=== PATIENT | female | born 1985 | race Two or more races ===

== ENCOUNTER 2024-07-11 17:07 | Emergency (ER) | payer MEDICAID, SELFPAY ==
[2024-07-11 17:17] VITALS: BP 167/95; PULSE 99; RESP 18; TEMP 36.9; O2SAT 99; BMI 35.2
--- NOTE | 2024-07-11 17:21 | XR_ITS ---
EXAMINATION: XR shoulder LT min 2V ORDERING PROVIDER: Jas Chávez NP HISTORY: pain after fall TECHNIQUE: 3 radiographs of the left shoulder were obtained. COMPARISON: None. FINDINGS: BONES: No acute fracture or dislocation. ALIGNMENT: Normal. JOINTS: Normal. BONY MINERALIZATION: Normal. SOFT TISSUES: Normal. IMPRESSION: Normal.
--- NOTE | 2024-07-11 17:22 | XR_ITS ---
EXAMINATION: XR chest 1V ORDERING PROVIDER: Jas Chávez NP HISTORY: leftant chest pain s/p fall TECHNIQUE: Single portable AP radiograph of the chest. COMPARISON: 09/14/2016, chest radiographs. FINDINGS: Lines and Tubes: None. Lungs: Clear. Pleura: No pneumothorax or pleural effusion. Cardiomediastinal Silhouette: Normal. Soft Tissues/Bones: Right upper quadrant surgical clips. IMPRESSION: No acute pulmonary findings.
--- NOTE | 2024-07-11 17:23 | PD.EDRME ---
Rapid Medical Screening Exam [facility] Arrival date/time: 07/11/24 17:07 CC: Left shoulder pain HPI unable to lift her arm secondary to feel like it is caught , and from the pain. This is a result of a slip out of a car when getting out on the slippery pavement approximately 2 hours ago. Denies any numbness or tingling in the hand of the left upper extremity. Patient denies loss of consciousness or altered level of consciousness past medical history includes diabetes and hyperlipidemia. Chief Complaint: Fall Time Seen by Provider: 07/11/24 17:10 Vital signs: Vital Signs Temperature 98.5 F 07/11/24 17:17 Pulse Rate 99 07/11/24 17:17 Respiratory Rate 18 07/11/24 17:17 Blood Pressure 167/95 H 07/11/24 17:17 Pulse Oximetry (%) 99 07/11/24 17:17 Oxygen Delivery Method Room Air 07/11/24 17:17
--- NOTE | 2024-07-11 19:28 | PD.EDFALL ---
ED Fall Injury RME/HPI General Chief Complaint: Fall Stated Complaint: LEFT SHOULDER PAIN SP FALL Time Seen by Provider: 07/11/24 17:10 Arrival date/time: 07/11/24 17:07 RME / HPI RME / HPI Narrative: 39-year-old female patient left shoulder pain HPI unable to lift her arm secondary to feel like it is caught , after a fall.. This is a result of a slip out of a car when getting out on the slippery pavement approximately 2 hours ago. Denies any numbness or tingling in the hand of the left upper extremity. Patient denies loss of consciousness or altered level of consciousness past medical history includes diabetes and hyperlipidemia. Related Data Home Medications ?Medication ?Instructions ?Recorded ?Confirmed atorvastatin 20 mg tablet 20 mg PO QPM 09/11/23 09/13/23 empagliflozin 25 mg tablet 25 mg PO QAM 09/11/23 09/13/23 (Jardiance) insulin glargine 100 unit/mL (3 60 unit subcut QPM 09/11/23 09/13/23 mL) subcutaneous pen (Basaglar KwikPen U-100 Insulin) insulin lispro 100 unit/mL 30 unit subcut TID 09/11/23 09/13/23 subcutaneous pen (Humalog KwikPen (U-100) Insulin) lisinopril 20 mg tablet 20 mg PO QDAY 09/11/23 09/13/23 Previous Rx's ?Medication ?Instructions ?Recorded ibuprofen 800 mg tablet 800 mg PO TID PRN pain #30 tabs 07/11/24 Allergies Allergy/AdvReac Type Severity Reaction Status Date / Time No Known Allergies Allergy Verified 09/13/23 07:44 Review of Systems Review of Systems Narrative Review of Systems: Review of system reviewed and within normal limits except mentioned in HPI ED Exam Narrative Physical exam: VITAL SIGNS: Reviewed. GENERAL APPEARANCE: Alert and interactive, follows commands, no acute distress, HEAD AND FACE: Non-traumatic. ENT: PERRL, pink conjunctivitis, eyelid no trauma, Mucous membrane moist. NECK: Supple, nontender, no nuchal rigidity. CHEST: No tenderness, no crepitus, no paradoxical movement, no retractions. LUNGS: Clear, well ventilated, symmetric, no rales, no wheezing, no ronchi, no stridor, good breath sounds bilaterally. HEART: Regular rate, regular rhythm, no murmur, no gallops. ABDOMEN: Soft, positive bowel sounds, nondistended, no guarding, nontender, no rebound, no masses, RECTAL: Deferred. GENITAL: Deferred. NEUROLOGICAL: Gross motor function intact sensory function intact, Appropriate for age. MUSCULOSKELETAL: low back nontender, full range of motion. EXTREMITIES: Left anterior shoulder tenderness, with limitation range of motion. Especially on lifting the arm over the head. SKIN: Color pink, dry, no rash, no lacerations, no abrasions, no contusions. LYMPHATICS: Deferred. Course Quality Measures none Orders Category Date Time Status XR chest 1V Stat Exams 07/11/24 17:22 Completed XR shoulder LT min 2V Stat Exams 07/11/24 17:21 Completed Vital Signs Vital signs: Vital Signs Temperature 98.5 F 07/11/24 17:17 Pulse Rate 99 07/11/24 17:17 Respiratory Rate 18 07/11/24 17:17 Blood Pressure 167/95 H 07/11/24 17:17 Pulse Oximetry (%) 99 07/11/24 17:17 Oxygen Delivery Method Room Air 07/11/24 17:17 Fall MDM Narrative MDM Narrative:: 39-year-old female patient left shoulder pain HPI unable to lift her arm secondary to feel like it is caught , after a fall.. This is a result of a slip out of a car when getting out on the slippery pavement approximately 2 hours ago. Denies any numbness or tingling in the hand of the left upper extremity. Patient denies loss of consciousness or altered level of consciousness past medical history includes diabetes and hyperlipidemia. Chest x-ray came back unremarkable. X-ray of the left shoulder also came back unremarkable. Results discussed with patient. Patient was placed on an arm sling. Patient is probably having shoulder sprain. Patient appears nontoxic and hemodynamically stable. Patient discharged home and instructed to follow-up with primary care provider in 24 to 48 hours. Instructed to return to the emergency department immediately if worsening of symptoms Patient data External records reviewed:: None Clinical information provided by:: patient Social determinants that could affect healthcare access:: none Patient has the following chronic illnesses:: Diabetes mellitus, hypertension, How is presenting disease/condition affected by chronic disease/condition?: exacerbated by Evaluation data The following diagnostics were reviewed and interpreted by me:: radiology exam(s) Lab and/or radiology exams considered but not ordered:: None Interpretation Summary: None Medications / Prescriptions Medications or Prescriptions considered but not ordered:: None Medication administrations:: None Consultations Consultation(s) initiated? (list below): No Diagnosis Fall Differential Diagnosis: dislocation of shoulder region and other (Shoulder sprain, status post fall) Most likely diagnosis given after review of the tests above:: Shoulder pain , status post fall Admission Indicated Admission indicated?: not indicated Explain why admission is indicated or not indicated:: Stable Admission Request Was there a request for admission?: No Disposition Plan Disposition Plan: Discharge Discharge Attestation Discharge Attestation: The patient was given an opportunity to ask questions and understood the discharge instructions. Discharge instructions specifically effects, indications for sooner follow up or return to the emergency department, and the expected course of current diagnosis. Patient condition: Stable Discharge Plan Plan Patient Disposition: HOME (Self Care) Disposition Comment: Stable Prescriptions/Referrals Prescriptions/Med Rec: New ibuprofen 800 mg tablet 800 mg PO TID PRN (Reason: pain) Qty: 30 0RF No Action atorvastatin 20 mg Tablet 20 mg PO QPM lisinopril 20 mg Tablet 20 mg PO QDAY insulin lispro [Humalog KwikPen Insulin] 100 unit/mL Insulin Pen 30 unit SUBCUT TID insulin glargine [Basaglar KwikPen U-100 Insulin] 100 unit/mL (3 mL) Insulin Pen 60 unit SUBCUT QPM Jardiance 25 mg Tablet 25 mg PO QAM Referrals: Ethan Buck MD [Primary Care Provider] - In 1 week Problem List Clinical Impression: Left shoulder pain, Fall Patient/Caregiver Discharge Instructions Discharge Activity: activity as tolerated Education Materials: Shoulder Clock Exercise Additional Instructions: Thank you for the opportunity for serving you today. You are stable for discharged . You are advised to: Follow-up with your PCP in 1 to 2 days Return to ED for worsening of symptoms Increase oral fluids Take medication as prescribed Wear your arm sling as needed for pain Print Language: Grenadian Stand Alone Forms: Lynette Award Info., Patient Portal Info Letter PA/ARMATURE W[employer]ER REPAIR HELPER Supervising Physician PA/DARREN Supervising Physician: MD Yvrose
[2024-07-11 19:32] VITALS: RESP 18
== END 2024-07-11 19:35 | disposition home or self-care (01) ==
PROVIDERS: Emergency Provider Emergency Medicine; PCP Family Medicine
DX: M25.512 Pain in left shoulder (principal); R07.9 Chest pain, unspecified; W19.XXXA Unspecified fall, initial encounter
CPT/HCPCS: 71045; 73030; 99283

== ENCOUNTER 2024-11-02 00:09 | Emergency (ER) | payer MEDICAID, SELFPAY ==
[2024-11-02 00:14] VITALS: BMI 31.1
[2024-11-02 00:35] VITALS: BP 163/97; PULSE 115; RESP 20; TEMP 37.2; O2SAT 100
[2024-11-02 03:45] LABS: Collection Type, Urine Voided
[2024-11-02 04:08] LABS: Bacteria,Urine 3+; Bilirubin,Urine Negative (Negative); Blood,Urine 3+ (Negative); Clarity,Urine Clear (Clear/Hazy); Color,Urine Lt-Yellow (Lt Yel-Yel); Glucose, Urine Negative (Negative); HCG Qualitative,Urine Negative; Ketones,Urine Negative (Negative); Leukocyte Esterase,Urine Negative (Negative); Nitrite,Urine Negative (Negative); PH,Urine 6.5 (5.0-7.0); Protein,Urine Negative (Neg - Trace); RBC,Urine 410 /hpf (0-3); Specific Gravity,Urine 1.025 (1.001-1.035); Squamous Epithelial Cell,Urine 2 /hpf (0-5); Urobilinogen,Urine Negative mg/dL (0.0-1.0); WBC,Urine 12 /hpf (0-5)
--- NOTE | 2024-11-02 04:16 | PD.EDFMALE ---
ED Female Urogenital RME/HPI General Chief complaint: General Adult/Misc Complain Stated complaint: PAINFUL URINATION FEVER LOW BACK PAIN Time Seen by Provider: 11/02/24 00:39 Arrival date/time: 11/02/24 00:09 This is a case of 39-year-old female who came in in the emergency room due to painful urination for 1 day burning in character urgency and increased frequency with mild lower back pain patient denies any abdominal pain flank pain nausea vomiting fever or chills Limitations: no limitations Related Data Home Medications ?Medication ?Instructions ?Recorded ?Confirmed atorvastatin 20 mg tablet 20 mg PO QPM 09/11/23 09/13/23 empagliflozin 25 mg tablet 25 mg PO QAM 09/11/23 09/13/23 (Jardiance) insulin glargine 100 unit/mL (3 60 unit subcut QPM 09/11/23 09/13/23 mL) subcutaneous pen (Basaglar KwikPen U-100 Insulin) insulin lispro 100 unit/mL 30 unit subcut TID 09/11/23 09/13/23 subcutaneous pen (Humalog KwikPen (U-100) Insulin) lisinopril 20 mg tablet 20 mg PO QDAY 09/11/23 09/13/23 Previous Rx's ?Medication ?Instructions ?Recorded ibuprofen 800 mg tablet 800 mg PO TID PRN pain #30 tabs 07/11/24 cephalexin 500 mg capsule 500 mg PO QID 10 days #40 caps 11/02/24 phenazopyridine 200 mg tablet 200 mg PO TID PRN pain 3 days #9 11/02/24 (Pyridium) tabs Allergies Allergy/AdvReac Type Severity Reaction Status Date / Time No Known Allergies Allergy Verified 11/02/24 00:18 Review of Systems Review of Systems Systems Reviewed: All systems reviewed, normal except as documented Constitutional Constitutional: Reports system reviewed and no additional complaints, except as documented, Reports as per HPI, Denies chills, Denies fatigue and Denies fever(s) ENT Ears, Nose, Mouth, and Throat: Denies dysphagia and Denies odynophagia Cardiovascular Cardiovascular: Reports system reviewed and no additional complaints, except as documented and Reports as per HPI Gastrointestinal Gastrointestinal: Reports system reviewed and no additional complaints, except as documented, Reports as per HPI, Denies abdominal pain, Denies belching, Denies bloating, Denies change in bowel habits, Denies change in stool character, Denies coffee ground emesis, Denies constipation, Denies cramping, Denies diarrhea, Denies dyspepsia, Denies dysphagia, Denies early satiety, Denies excessive flatus, Denies fecal incontinence, Denies heartburn, Denies hematemesis, Denies hematochezia, Denies loose stools, Denies melena, Denies nausea, Denies odynophagia, Denies tenesmus and Denies vomiting Genitourinary Genitourinary: Reports system reviewed and no additional complaints, except as documented, Reports as per HPI, Denies difficulty voiding, Denies dysmenorrhea, Denies dyspareunia, Reports dysuria, Denies hematuria, Denies urinary frequency, Denies urinary incontinence, Denies urinary hesitancy, Reports urinary urgency, Denies vaginal discharge, Denies vaginal dryness, Denies vaginal odor and Denies vaginal pruritus Neurologic Neurologic: Reports system reviewed and no additional complaints, except as documented and Reports as per HPI Endocrine Endocrine: Denies fatigue Past Medical History Past Medical History NEUROLOGIC: Negative Neurological Disorders or Seizures CARDIAC: Positive Cardiac Disorders and Hypertension; Negative Congestive Heart Failure RESPIRATORY: Positive Asthma; Negative Chronic Obstructive Pulmonary Disease (COPD) GASTROINTESTINAL: Positive Gastrointestinal Disorders and Obesity GENITOURINARY: Negative Genitourinary Disorders or Renal Disease REPRODUCTIVE: Positive Previous Pregnancies MUSCULOSKELETAL: Negative Musculoskeletal Disorders ENDOCRINE: Positive Endocrine Disorders and Diabetes Mellitus Type 2; Negative Diabetes Mellitus Type 1 HEMATOLOGIC: Positive Blood Disorders and Anemia; Negative Sickle Cell Disease OTHER HISTORY: Positive Hospitalization (Diabetes), Chicken Pox and Measles; Negative Autoimmune Disease, Shingles, Blood Transfusions, Blood Transfusion Reaction, Anesthesia Reactions or Cancer Family History FAMILY HISTORY: Positive Family Respiratory Disorders and Family Cardiac Disorders; Negative Family Psychiatric Problems, Family Gastrointestinal Problems, Family Cancer, Family Surgery or Family Anesthesia Reaction Surgical History SURGICAL: Positive Tubal Ligation and Section Social History SMOKING STATUS: Never smoker ED Exam General Limitations: Present no limitations General appearance: Present alert and in no apparent distress; Absent appears intoxicated, anxious, lethargic, obtunded, in distress, obese or cachectic Head Head exam: Present atraumatic Eye Eye exam: Present normal appearance, PERRL and EOMI ENT ENT exam: Present normal exam, normal oropharynx and mucous membranes moist Neck Neck exam: Present normal inspection, full ROM and trachea midline; Absent tenderness, meningismus, lymphadenopathy or thyromegaly Chest Chest inspection: Present normal inspection and symmetric chest wall rise; Absent tenderness, rash or abscess Respiratory Respiratory exam: Present normal lung sounds bilaterally; Absent respiratory distress, wheezes, stridor, accessory muscle use or prolonged expiratory phase Cardiovascular Cardiovascular exam: Present regular rate, normal rhythm and normal heart sounds; Absent bradycardia, tachycardia, irregular rhythm or systolic murmur Abdominal Exam Abdominal exam: Present soft, normal bowel sounds and other (No CVA tenderness no bladder distended or distended no tenderness); Absent distention, tenderness, guarding, rebound, rigidity, diminished bowel sounds, hyperactive bowel sounds, hypoactive bowel sounds, organomegaly, obturator sign, Mayer's sign, Rovsing's sign, tenderness at McBurney's Point or pulsatile mass Extremities Exam Extremities exam: Present normal inspection and full ROM Back Exam Back exam: Present normal inspection, full ROM and other (ROM intact neurovascular intact); Absent tenderness, CVA tenderness (R), CVA tenderness (L), muscle spasm, paraspinal tenderness, vertebral tenderness, rashes, sciatic notch tenderness (R), sciatic notch tenderness (L), straight leg raise (R) or straight leg raise (L) Neurological Exam Neurological exam: Present alert, oriented X3, CN II-XII intact, normal gait and reflexes normal; Absent motor sensory deficit Psychiatric Psychiatric exam: Present normal affect and normal mood Skin Skin exam: Present warm, dry, intact and normal color Course Quality Measures none Orders Category Date Time Status Straight [In and Out Catheter] X1 Care 11/02/24 03:08 Active HCG Qualitative,Urine Stat Lab 11/02/24 03:36 Completed Urinalysis Stat Lab 11/02/24 03:36 Completed Ketorolac Inj [Toradol Inj] Med 11/02/24 04:11 Discontinued 30 mg IM X1 ONE cefTRIAXone [Rocephin] 1,000 mg Med 11/02/24 04:12 Discontinued Lidocaine 1% 20 ml [Xylocaine 1% 20 ML] 2.1 ml IM X1 Vital Signs Vital signs: Vital Signs Temperature 99.0 F 11/02/24 00:35 Pulse Rate 115 H 11/02/24 00:35 Respiratory Rate 20 11/02/24 00:35 Blood Pressure 163/97 H 11/02/24 00:35 Pulse Oximetry (%) 100 11/02/24 00:35 Oxygen Delivery Method Room Air 11/02/24 00:35 Oxygen saturation 100% in room air Urogenital - Female MDM Narrative MDM Narrative:: This is a case of 39-year-old female who came in in the emergency room due to painful urination for 1 day burning in character urgency and increased frequency with mild lower back pain patient denies any abdominal pain flank pain nausea vomiting fever or chills physical examination patient is awake alert oriented not in distress nontoxic looking abdominal exam is benign nonsurgical no guarding no rebound no rigidity negative psoas negative straight or negative Rovsing's negative McBurney's negative Mayer sign negative CVA tenderness the rest of the physical exam and neurological exam is normal and unremarkable patient urinalysis showed positive WBC and blood in urine patient was given ceftriaxone IM here for urinary tract infection urine culture was sent to the laboratory for urine culture and sensitivity patient was given Toradol for pain no signs and symptoms of sepsis dehydration or acute abdomen Patient was discharged with comfortable condition walking with stable gait. Patient verbalized no further complains explained diagnosis and answered patient question. Patient is comfortable with the proposed management plan including the need to follow up with his/her primary care physician and any specialist if applicable Discussed patient for any urgent condition or worsening sx, He/She needed to go to emergency room immediately or call 911. Patient acknowledge the responsibility to follow up as instructed and to monitor her/his symptoms. For any persistence of the symptoms for more than 3-5 days return precaution advised. Discussed the result of the test and was given printed discharge instruction Patient data External records reviewed:: [facility] previous records Clinical information provided by:: patient Social determinants that could affect healthcare access:: none Patient has the following chronic illnesses:: None How is presenting disease/condition affected by chronic disease/condition?: no chronic disease Evaluation data The following diagnostics were reviewed and interpreted by me:: lab results Lab and/or radiology exams considered but not ordered:: Reviewed Interpretation Summary: Reviewed Medications / Prescriptions Medications or Prescriptions considered but not ordered:: Given Medication administrations:: Medication Administration History Discontinued Medications Ceftriaxone Sodium 1,000 mg/ (Lidocaine HCl 2.1 ml) 0 mg IM X1 ONE Stop: 11/02/24 04:13 Ketorolac Tromethamine (Ketorolac Inj 60 Mg/2 Ml Vial) 30 mg IM X1 ONE Stop: 11/02/24 04:12 Given Consultations Consultation(s) initiated? (list below): No Diagnosis Urogenital Female Differential Diagnosis: urinary tract infection Most likely diagnosis given after review of the tests above:: Urinary tract infection Admission Indicated Admission indicated?: not indicated Explain why admission is indicated or not indicated:: Not indicated Admission Request Was there a request for admission?: No Admission Attestation Admission request attestation: Not indicated Disposition Plan Disposition Plan: Discharge Discharge Attestation Discharge Attestation: The patient and all family members were given an opportunity to ask questions and understood the discharge instructions. Discharge instructions specifically effects, indications for sooner follow up or return to the emergency department, and the expected course of current diagnosis. Patient condition: Stable Discharge Plan Plan Patient Disposition: HOME (Self Care) Patient condition on transfer: Stable Prescriptions/Referrals Prescriptions/Med Rec: New cephalexin 500 mg capsule 500 mg PO QID 10 Days Qty: 40 0RF phenazopyridine [Pyridium] 200 mg tablet 200 mg PO TID PRN (Reason: pain) 3 Days Qty: 9 0RF No Action atorvastatin 20 mg Tablet 20 mg PO QPM lisinopril 20 mg Tablet 20 mg PO QDAY insulin lispro [Humalog KwikPen Insulin] 100 unit/mL Insulin Pen 30 unit SUBCUT TID insulin glargine [Basaglar KwikPen U-100 Insulin] 100 unit/mL (3 mL) Insulin Pen 60 unit SUBCUT QPM Jardiance 25 mg Tablet 25 mg PO QAM ibuprofen 800 mg tablet 800 mg PO TID PRN (Reason: pain) Qty: 30 0RF Referrals: No Primary/Family,Physician [Primary Care Provider] - In 1 week Problem List Clinical Impression: Dysuria, Urinary tract infection Patient/Caregiver Discharge Instructions Education Materials: Dysuria, Urinary Tract Infections in Women Additional Instructions: Follow-up with your primary care physician in 2 days for reevaluation recurrence persistent worsening symptoms or any emergent concern call 911 or go to the nearest emergency room take your medication as directed finish the course of med antibiotic increase water intake keep hydrated Print Language: Scottish Stand Alone Forms: Lynette Award Info., Patient Portal Info Letter PA/DARREN Supervising Physician PA/DARREN Supervising Physician: dr [email or web address]
[2024-11-02] MEDS: KETOROLAC INJ 60 MG/2 ML VIAL 30 MG IM (04:33)
[2024-11-02] MEDS: cefTRIAXone 1,000 MG, LIDOCAINE 1% 20 ML 2.1 ML IM (04:34)
[2024-11-02 05:11] VITALS: BP 158/88; PULSE 89; RESP 18; TEMP 36.8
== END 2024-11-02 05:12 | disposition home or self-care (01) ==
PROVIDERS: Nurse Practitioner Family; Emergency Provider Emergency Medicine
DX: N39.0 Urinary tract infection, site not specified (principal)
CPT/HCPCS: 81001; 81025; 96372; 99283; J0696; J1885; J3490

== ENCOUNTER 2025-02-03 20:07 | Emergency (ER) | payer MEDICAID, SELFPAY ==
[2025-02-03 20:08] VITALS: BMI 32.2
[2025-02-03 21:08] VITALS: BP 159/98; PULSE 94; RESP 18; TEMP 37.6; O2SAT 99
--- NOTE | 2025-02-03 21:10 | EDNOTE_ITS ---
Lower Extremity Injury RME/HPI General Chief Complaint: Ankle/Foot Injury Stated Complaint: RT FOOT INJURY Time Seen by Provider: 02/03/25 20:20 Source: patient, RN notes reviewed and old records reviewed Arrival date/time: 02/03/25 20:07 Mode of arrival: ambulatory Limitations: no limitations RME / HPI RME / HPI Narrative: 39yof presents to ED for foot pain s/p injury today. Patient states she dropped a bottle of bleach onto her right foot. No deformity reported. 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 Related Data Home Medications ?Medication ?Instructions ?Recorded ?Confirmed atorvastatin 20 mg tablet 20 mg PO QPM 09/11/23 empagliflozin 25 mg tablet 25 mg PO QAM 09/11/2309/12 (Jardiance) insulin glargine 100 unit/mL (3 60 unit subcut QPM 09/13/23 mL) subcutaneous pen (Basaglar KwikPen U-100 Insulin) insulin lispro 100 unit/mL 30 unit subcut TID 09/11/23 09/13/23 subcutaneous pen (Humalog KwikPen (U-100) Insulin) lisinopril 20 mg tablet 20 mg PO QDAY 09/11/2309/12 Previous Rx's ?Medication ?Instructions ?Recorded ibuprofen 800 mg tablet 800 mg PO TID PRN pain #30 t abs 07/11/24 ibuprofen 600 mg tablet 600 mg PO Q6H PRN pain #20 t abs 02/03/25 Allergies Allergy/AdvReac Type Severity Reaction Status Date / Time No Known Allergies Allergy Verified 11/02/24 00:18 Review of Systems Review of Systems Systems Reviewed: All systems reviewed, normal except as documented Musculoskeletal Musculoskeletal: Reports arthralgias, Denies deformity, Reports joint swelling and Reports limited range of motion Past Medical History Past Medical History CARDIAC: Positive Hypertension GASTROINTESTINAL: Positive Obesity ENDOCRINE: Positive Diabetes Mellitus Type 2 Surgical History SURGICAL: Positive Hx Cholecystectomy OTHER SURGICAL HX: appendectomy, ovarian cystectomy Social History SMOKING STATUS: Never smoker SUBSTANCE USE: does not use ALCOHOL: Never ED Exam General Limitations: Present no limitations General appearance: Present alert and in no apparent distress Head Head exam: Present atraumatic and normocephalic Eye Eye exam: Present normal appearance, PERRL and EOMI ENT ENT exam: Present normal exam and mucous membranes moist Neck Neck exam: Present normal inspection and full ROM Chest Chest inspection: Present normal inspection and symmetric chest wall rise Respiratory Respiratory exam: Present normal lung sounds bilaterally; Absent respiratory distress Cardiovascular Cardiovascular exam: Present regular rate and normal rhythm Extremities Exam Extremities exam: Present other (Mild tenderness/swelling to distal right foot. Limited ROM 2/2 pain. Able to wiggle all toes. 2+ pedal pulse, sensation intact) Back Exam Back exam: Present normal inspection and full ROM Neurological Exam Neurological exam: Present alert and oriented X3 Psychiatric Psychiatric exam: Present normal affect and normal mood Skin Skin exam: Present warm, dry and intact Course Quality Measures none Orders Category Date Time Status XR foot comp RT min 3V Stat Exams 02/03/25 21:11 Completed Acetaminophen Tab [Tylenol ES Tab] Med 02/03/25 21:18 Discontinued 1,000 mg PO X1 ONE Vital Signs Vital signs: Vital Signs Temperature 99.6 F 02/03/25 21:08 Pulse Rate 94 02/03/25 21:08 Respiratory Rate 18 02/03/25 21:08 Blood Pressure 159/98 H 02/03/25 21:08 Pulse Oximetry (%) 99 02/03/25 21:08 Oxygen Delivery Method Room Air 02/03/25 21:08 Extremity Injury, Lower MDM Narrative MDM Narrative:: 39yof presents to ED for foot pain s/p injury today. Patient states she dropped a bottle of bleach onto her right foot. No deformity reported. 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 Patient is neurovascularly intact. Encouraged RICE therapy, motrin/tylenol prn pain. Pcp follow up as needed. Stable for dc, RTED precautions given. Patient data External records reviewed:: [facility] previous records (11/02/24 ED visit for dysuria) Clinical information provided by:: patient Social determinants that could affect healthcare access:: other (specify) (Poor access to healthcare, acculturation difficulty) Patient has the following chronic illnesses:: DM, HTN, obesity How is presenting disease/condition affected by chronic disease/condition?: uneffected by Evaluation data The following diagnostics were reviewed and interpreted by me:: radiology exam(s) Lab and/or radiology exams considered but not ordered:: None Interpretation Summary: Foot x-rays: No fracture per my read Medications / Prescriptions Medications or Prescriptions considered but not ordered:: none Medication administrations:: Medication Administration History Discontinued Medications Acetaminophen (Acetaminophen 500 Mg Tablet) 1,000 mg PO X1 ONE Stop: 02/03/25 21:19 Last Admin: 02/03/25 21:33 Dose: 1,000 mg Documented By: FAVIOLA grimm medications adminstered in ED Consultations Consultation(s) initiated? (list below): No Diagnosis Extremity Injury, Lower Differential Diagnosis: other (fracture, dislocation, sprain, strain, contusion, msk pain) Most likely diagnosis given after review of the tests above:: foot contusion Admission Indicated Admission indicated?: not indicated Admission Request Was there a request for admission?: No Disposition Plan Disposition Plan: Discharge Discharge Attestation Discharge Attestation: The patient and all family members were given an opportunity to ask questions and understood the discharge instructions. Discharge instructions specifically effects, indications for sooner follow up or return to the emergency department, and the expected course of current diagnosis. Patient condition: Stable Discharge Plan Plan Patient Disposition: HOME (Self Care) Patient condition on transfer: Stable Prescriptions/Referrals Prescriptions/Med Rec: New ibuprofen 600 mg tablet 600 mg PO Q6H PRN (Reason: pain) Qty: 20 0RF No Action atorvastatin 20 mg Tablet 20 mg PO QPM lisinopril 20 mg Tablet 20 mg PO QDAY insulin lispro [Humalog KwikPen Insulin] 100 unit/mL Insulin Pen 30 unit SUBCUT TID insulin glargine [Basaglar KwikPen U-100 Insulin] 100 unit/mL (3 mL) Insulin Pen 60 unit SUBCUT QPM Jardiance 25 mg Tablet 25 mg PO QAM ibuprofen 800 mg tablet 800 mg PO TID PRN (Reason: pain) Qty: 30 0RF Referrals: No Primary/Family,Physician [Primary Care Provider] - In 1 week Problem List Clinical Impression: Contusion of toe of right foot Patient/Caregiver Discharge Instructions Education Materials: ED Contusion, Lower Extremity Print Language: Kyrgyz Stand Alone Forms: Lynette Award Info., Patient Portal Info Letter PA/[employer] Supervising Physician PA/[employer] Supervising Physician: Lissa
--- NOTE | 2025-02-03 21:11 | XR_ITS ---
Examination: Foot, right, 3 views Technique: AP, oblique, lateral views foot, 3 views Date and time of exam: February 03, 2025, 2112 hours INDICATIONS: Patient dropped a bottle on the foot today with pain FINDINGS: No acute fracture. No dislocation Small plantar posterior bony calcaneal spurs Soft tissue swelling dorsum of the foot IMPRESSION: No acute fracture
[2025-02-03] MEDS: ACETAMINOPHEN 500 MG TABLET 1000 MG PO (21:33)
== END 2025-02-03 21:40 | disposition home or self-care (01) ==
PROVIDERS: Emergency Provider Emergency Medicine
DX: S90.121A Contusion of right lesser toe(s) without damage to nail, initial encounter (principal); W20.8XXA Other cause of strike by thrown, projected or falling object, initial encounter
CPT/HCPCS: 73630; 99283; A9270